=== PATIENT | male | born 1950 | race African-American/Black ===

== ENCOUNTER 2017-10-20 07:26 | Day surgery (SDC) | payer MEDICARE, OTHER ==
[~2017-10-20 07:26] MED LIST: ROCURONIUM 50 MG INJ
[2017-10-20] MEDS ORDERED: BUPIVACAINE 0.5% (SDV) 30 ML INJ (11:37)
[2017-10-20] MEDS ORDERED: PROPOFOL 20 ML (11:43)
[2017-10-20] MEDS ORDERED: morphine 10 MG INJ (11:46)
[2017-10-20] MEDS ORDERED: KETOROLAC 30 MG INJ IV (12:00)
[2017-10-20] MEDS ORDERED: DIPHENHYDRAMINE 50 MG INJ IV (12:00)
[2017-10-20] MEDS ORDERED: EPHEDrine SULFATE 50 MG/5 ML SYG IV (12:00)
[2017-10-20] MEDS ORDERED: FENTAnyl 50 MCG/ML VIAL IV ×3 (12:00)
[2017-10-20] MEDS ORDERED: hydrALAzine 20 MG INJ IV (12:00)
[2017-10-20] MEDS ORDERED: MEPERIDINE 25 MG INJ IV (12:00)
[2017-10-20] MEDS ORDERED: LABETALOL HCL 20MG INJ IV (12:00)
[2017-10-20] MEDS ORDERED: HYDROmorphONE (0.2 MG/ML) 10ML SYG IV ×3 (12:00)
[2017-10-20] MEDS ORDERED: OXYCODONE/ACETAMINOPHEN (5/325) TAB PO ×2 (12:00)
[2017-10-20] MEDS ORDERED: METOCLOPRAMIDE 10 MG INJ IV (12:00)
[2017-10-20] MEDS ORDERED: ONDANSETRON 4 MG INJ IV (12:00)
[2017-10-20] MEDS ORDERED: ALBUTEROL 0.083% (NEB) 2.5 MG/3 ML AMP HHN (12:00)
[2017-10-20] MEDS ORDERED: MIDAZOLAM 1 MG/ML 2 ML INJ IV (12:00)
[2017-10-20] MEDS: POLYMYXIN/BACITRACIN 1L IRRIG (12:32)
[2017-10-20] MEDS: LIDOCAINE 1%/EPI 30 ML INJ (12:51)
[2017-10-20] MEDS ORDERED: SUGAMMADEX SODIUM 200 MG/2 ML VIAL IV (13:11)
[2017-10-20] MEDS ORDERED: LIDOCAINE 100 MG SYRINGE (13:21)
[2017-10-20] MEDS ORDERED: CEFAZOLIN 1 GM INJ (13:21)
== END 2017-10-20 17:55 | disposition home or self-care (01) ==
LOC: SDS 07:26
DX: K40.30 Unilateral inguinal hernia, with obstruction, without gangrene, not specified as recurrent (principal); N43.3 Hydrocele, unspecified; I10 Essential (primary) hypertension
CPT/HCPCS: 49507